=== PATIENT | female | born 1995 | race African-American/Black ===

== ENCOUNTER 2019-12-20 00:48 | Emergency (ER) | payer BC, SELFPAY ==
--- NOTE | ~2019-12-20 | XR_ITS ---
EXAMINATION: XR chest 1V portable INDICATION: Shortness of breath TECHNIQUE: Portable AP chest at 0145 hours COMPARISON: None available FINDINGS: The lungs are free of acute opacities. There is no pleural effusion or pneumothorax. The ca rdiomediastinal silhouette is normal. The visualized bones and soft tissues are unremarkable. IMPRESSION: 1. No acute cardiopulmonary abnormality. Reviewed, dictated and finalized at location A. DECORATOR
[2019-12-20 01:01] VITALS: BP 132/88; PULSE 107; PULSE 90; RESP 20; TEMP 36.2; O2SAT 100
--- NOTE | 2019-12-20 01:05 | ED.SOB ---
HPI - SOB/Dyspnea General Chief Complaint: Shortness of Breath/Dyspnea Stated Complaint: sob/heart beating fast Time Seen by Provider: 12/20/19 00:56 History of Present Illness HPI Narrative: Intermittent SOB today. Mother noticed she was breathing fast and deeper than usual. This was associated with light headedness and nothing feeling right . She also had some left sided abdominal pain. She has had this pain before. It has resolved at present. Her step father recently tested positive for COVID-19. She subsequently tested negative. No fever, cough, congestion, nausea, vomiting. Related Data Allergies Allergy/AdvReac Type Severity Reaction Status Date / Time No Known Allergies Allergy Unknown Verified 12/20/19 01:04 Review of Systems Review of Systems: All systems reviewed & are unremarkable except as noted in HPI and below Constitutional: Constitutional: Denies chills and Denies fever(s) ENT: Denies sore throat Cardiovascular: Cardiovascular: Denies chest pain Respiratory: Respiratory: Denies cough, Reports dyspnea and Denies wheezing Gastrointestinal: Gastrointestinal: Reports abdominal pain, Denies constipation, Denies diarrhea, Denies nausea and Denies vomiting Genitourinary: Genitourinary: Denies hematuria and Denies dysuria Neurologic: Reports dizziness and Denies syncope [facility] Past Medical History Medical History (Updated 12/20/19 @ 01:49 by Dinesh Gonzalez MD) Healthy adult Social History Social History (Updated 12/20/19 @ 01:43 by Dinesh Gonzalez MD) Substance use type: marijuana Exam Const: General: healthy appearing, no acute distress and alert Nutritional Appearance: thin Orientation/consciousness: patient oriented x3 HENMT: Head: normal to inspection Chest: Chest palpation & inspection: normal inspection of the chest Resp: Effort & Inspection: normal respiratory effort Auscultation: clear to auscultation bilaterally Cardio: Rate: tachycardic Rhythm: regular rhythm GI: Inspection: non-distended GI Palp: Yes Soft to palpation and No Tenderness to palpation present (GI) Skin: General skin exam: normal color Neuro: General: patient oriented x3 and moves all extremities Speech: normal speech Extrem: General: normal to inspection and no edema Psych: Affect: Anxious affect present Course Vital Signs Vital signs: Vital Signs Temperature 36.2 C L 12/20/19 01:01 Pulse Rate 90 12/20/19 01:01 Respiratory Rate 20 12/20/19 01:01 Blood Pressure 132/88 12/20/19 01:01 Pulse Oximetry 100 12/20/19 01:01 Temperature 36.2 C L 12/20/19 01:01 Pulse Rate 107 H 12/20/19 01:01 Respiratory Rate 20 12/20/19 01:01 Blood Pressure 132/88 12/20/19 01:01 Pulse Oximetry 100 12/20/19 01:01 MDM - SOB/Dyspnea MDM Narrative Medical decision making narrative: I suspect anxiety. Oxygen saturation consistently 99-100%. CXR clear. Tachycardia resolved once she was relaxed. Differential Diagnosis Differential diagnosis: Likely community acquired pneumonia and other (anxiety, ) Medical Records Attestation: I reviewed the patient's medical records. Imaging Data Attestation: I personally reviewed and interpreted this imaging study as follows: My impression: negative chest x-ray Discharge Plan Discharge Clinical Impression: Dyspnea Qualifiers: Dyspnea type: unspecified Qualified Code(s): R06.00 - Dyspnea, unspecified Patient Disposition: Home, Self-Care Condition: Stable Instructions: Dyspnea (ED) Prescriptions: No Action methylprednisolone [Medrol (Jaswant)] 4 mg tablets,dose pack See Rx Instructions .ROUTE .COMPLEX Qty: 21 RF: 0 ibuprofen 800 mg tablet 800 mg PO TID PRN (Reason: pain) Qty: 20 RF: 0 Follow-up/Referrals: PHYSICIAN,MENTAL RETARDATION NURSE [Primary Care Provider] -
[2019-12-20 01:47] VITALS: BP 105/73; PULSE 69; RESP 19; O2SAT 100; O2SAT 99
[2019-12-20 02:00] VITALS: BP 100/60; PULSE 78; RESP 19; O2SAT 99
== END 2019-12-20 02:00 | disposition home or self-care (01) ==
PROVIDERS: Emergency Provider Emergency Medicine
DX: R06.00 Dyspnea, unspecified (principal)
CPT/HCPCS: 71045; 99283